=== PATIENT | female | born 1995 | race African-American/Black ===

== ENCOUNTER 2018-04-24 08:33 | Emergency (ER) | payer MEDICAID ==
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
--- NOTE | 2018-04-24 10:16 | CT ---
EXAMINATION: Non contrast CT head and facial bones. Coronal and sagittal reformats. HISTORY: Pain FINDINGS: Head: No evidence of intra or extra axial hemorrhage, mass, midline shift, hydrocephalus or edema. No hypoattenuation changes in the major vascular territories to suggest acute infarct. No abnormal intracranial calcifications are detected. No evidence of substantial vascular calcifications. Pit uitary fossa appears unremarkable. The calvarium is intact. No evidence of skull fracture. Facial bones: There is a trace fluid within the mastoid air cells. Mild mucosal thickening within the ethmoid air cells. Mastoid air cells are clear. Nasal bones are intact. The maxillary and orbital lopez are preserved. Slight amount arches and ptery goid plates are intact. The mandible is intact. Bone mineralization is normal. IMPRESSION: 1. No acute intracranial abnormalities. 2. No evidence of an acute facial bone injury. 3. Minimal paranasal sinus disease.
--- NOTE | 2018-04-24 10:20 | CT ---
EXAMINATION: CT cervical spine HISTORY: Pain COMPARISON: None TECHNIQUE: Axial CT images obtained through the cervical spine without contrast. Coronal and sagittal reconstructions obtained. FINDINGS: Reversal of the normal cervical lordosis, likely positional. The vertebral body heights and disc spaces appear well-maintained. There is no fracture or acute osseous abnormality. Bone minerali zation is normal. The paravertebral soft tissues appear normal. The lung apices are clear. IMPRESSION: Grossly unremarkable cervical spine.
== END 2018-04-24 10:34 | disposition home or self-care (01) ==
LOC: MW.ED 08:33
DX: S00.33XA Contusion of nose, initial encounter (principal); V59.9XXA Occupant (driver) (passenger) of pick-up truck or van injured in unspecified traffic accident, initial encounter
CPT/HCPCS: 70450; 70450-26; 70486; 70486-26; 71045; 71045-26; 72125; 72125-26; 81001; 81025; 99284-25

== ENCOUNTER 2018-08-18 19:09 | Emergency (ER) | payer SELFPAY ==
--- NOTE | 2018-08-18 21:15 | EDM.PDOC ---
ED HPI GENERAL MEDICAL PROBLEM - General Chief Complaint: General Stated Complaint: PT HAS PAIN INSIDE LT BREAST Time Seen by Provider: 08/18/18 21:02 - History of Present Illness INITIAL COMMENTS - FREE TEXT/NARRATIVE: HISTORY AND PHYSICAL: History of present illness: The patient is a 23-year-old female who presents with complaints of feeling a hardened area and pain to her left breast just lateral to her nipple. The patient says that 2 years ago she had an area in the same location that was a pimple and then proceeded to turn into some kind of an abscess which was draining. She was treated conservatively and did not have any surgery on it and it resolved. She says that she noticed a hardened area in the same location in April, -08/08 months ago, and it is not caused her significant pain but she has had discomfort there on and off. The patient has regular periods and does not have significant breast pain with her periods and she is not currently . She's had no new trauma to the area but she says that she has tried to squeeze the area to see if there is any pus in it and nothing has come out. She said that today she had more discomfort and thought she should be evaluated. She has no drainage from her nipple and has no other discomfort throughout the left breast or at the right breast. She has no systemic complaints of fever chills chest pain or shortness of breath. Review of systems: As per history of present illness and below otherwise all systems reviewed and negative. Past medical history: As per history of present illness and as reviewed below otherwise noncontributory. Surgical history: As per history of present illness and as reviewed below otherwise noncontributory. Social history: No reported history of drug or alcohol abuse. Family history: As per history of present illness and as reviewed below otherwise noncontributory. Physical exam: General: Well-developed well-nourished female who is nontoxic and vital signs are noted by me HEENT: Atraumatic, normocephalic, negative for conjunctival pallor or scleral icterus, mucous membranes moist, throat clear, neck supple, nontender, trachea midline. Lungs: Clear to auscultation, breath sounds equal bilaterally, chest nontender. Breasts: Breasts are symmetrical and there is no evidence of any skin tenting or asymmetry. More specifically at the left breast there is no nipple discharge and the breast overall has no palpable masses or soft tissue swelling with the exception of a superficial 1 cm oval-like hardened area which is mobile at approximately 9:00 just lateral to the area over edge. There is no evidence of any surrounding erythema and the area is very indurated and hard. There is no axillary lymphadenopathy or supraclavicular lymphadenopathy. Heart: S1S2, regular rate and rhythm no overt murmurs Abdomen: Soft, nondistended, nontender. NABS Pelvis: Deferred Genitourinary: Deferred. Rectal: Deferred. Extremities: Atraumatic, range of motion without defects or deficits Neurovascular unremarkable. Neuro: Awake, alert, oriented. Cranial nerves II through XII unremarkable. Cerebellum unremarkable. Motor and sensory unremarkable throughout. Exam nonfocal. Diagnostics: [] Therapeutics: [] Impression: Superficial cyst/lesion at the left breast chronic stable Definitive disposition and diagnosis as appropriate pending reevaluation and review of above. left breast Pain Score (Numeric/FACES): 9 - Related Data Allergies Allergy/AdvReac Type Severity Reaction Status Date / Time No Known Allergies Allergy Verified 08/18/18 20:45 Home Meds: Home Meds . [No Known Home Meds] 04/24/18 [History] Past Medical History - Past Health History Medical/Surgical History: Denies Medical/Surgical History - Infectious Disease History Infectious Disease History: Reports: Chicken Pox Social & Family History - Family History Family Medical History: Noncontributory - Tobacco Use Smoking Status *Q: Never Smoker - Caffeine Use Caffeine Use: Reports: Coffee, Energy Drinks, Soda, Tea - Recreational Drug Use Recreational Drug Use: No ED ROS GENERAL - Review of Systems Review Of Systems: ROS reveals no pertinent complaints other than HPI. ED EXAM, GENERAL - Physical Exam Exam: See Below (See dictation) Course - Vital Signs Last Recorded V/S: Last Vital Signs Temp 36.5 C 08/18/18 20:45 Pulse 81 08/18/18 20:45 Resp 18 08/18/18 20:45 BP 148/80 H 08/18/18 20:45 Pulse Ox 98 08/18/18 20:45 Departure - Departure Time of Disposition: 21:27 Disposition: Home, Self-Care 01 Condition: Good Clinical Impression: Left breast mass - Discharge Information Referrals: PCP,None [Primary Care Provider] - Forms: ED Department Discharge Additional Instructions: The following information is given to patients seen in the emergency department who are being discharged to home. This information is to outline your options for follow-up care. We provide all patients seen in our emergency department with a follow-up referral. The need for follow-up, as well as the timing and circumstances, are variable depending upon the specifics of your emergency department visit. If you don't have a primary care physician on staff, we will provide you with a referral. We always advise you to contact your personal physician following an emergency department visit to inform them of the circumstance of the visit and for follow-up with them and/or the need for any referrals to a consulting specialist. The emergency department will also refer you to a specialist when appropriate. This referral assures that you have the opportunity for followup care with a specialist. All of these measure are taken in an effort to provide you with optimal care, which includes your followup. Under all circumstances we always encourage you to contact your private physician who remains a resource for coordinating your care. When calling for followup care, please make the office aware that this follow-up is from your recent emergency room visit. If for any reason you are refused follow-up, please contact the [facility] emergency department at and ask to speak to the emergency department charge nurse. [facility] [address] [place] [id number] [facility] Primary care- Internal Medicine and Family [place] [id number] [place] [id number] Contact our clinic for follow-up care starting with our surgery clinic as you may choose to have this area removed and further evaluated. Try not to manipulate the area and use [id number] medications for any pain. Return to ER as needed and as discussed
== END 2018-08-18 21:51 | disposition home or self-care (01) ==
LOC: MW.ED 19:09
DX: N63.0 Unspecified lump in unspecified breast (principal)
CPT/HCPCS: 99283